=== PATIENT | male | born 1980 | race Caucasian/White ===

== ENCOUNTER 2021-07-01 20:58 | Emergency (ER) | payer SELFPAY ==
[~2021-07-01] VITALS: Ht 177.8 cm; Wt 89.9 kg
[2021-07-01 21:16] VITALS: BP 92/66
--- NOTE | 2021-07-01 21:32 | NUR ---
2119 TAKEN TO BED.
[2021-07-01] MEDS ORDERED: BACITRACIN OINT 500 UNITS/GM PKT TP ONE (22:25)
[2021-07-01] MEDS ORDERED: ACETAMINOPHEN EXTRA STRENGTH 500 MG TAB PO ONE (22:25)
--- NOTE | 2021-07-01 22:30 | NUR ---
Patient appears to be resting comfortably in bed. Vital Signs within normal limits. Respirations even and unlabored.
--- NOTE | 2021-07-01 23:14 | NUR ---
cleaned puncture site. applied ointment and new bandage. pt resting comfortably
[2021-07-01] MEDS ORDERED: BACI1PAC6 TP (23:15)
[2021-07-01] MEDS ORDERED: ACET-10509 PO (23:15)
[2021-07-01] MEDS ORDERED: CEPH-588 PO (23:16)
[2021-07-01] MEDS ORDERED: cephALEXin 500 MG CAP PO ONE (23:20)
--- NOTE | 2021-07-01 23:20 | NUR ---
41 Y/O MALE HAD A NAIL IN CHEST YESTERDAY TRYING TO PULL IT OUT OF MATERIAL. PT DID NOT COME TO WE UNTIL IT BEGAN TO HURT AND THERE WAS REDNESS AND SWELLING AROUND SITE. PT STATES PAIN 8/10. PT STATES PAIN RADIATES LATERALLY ACROSS CHEST. NAIL WENT ABOUT 1.5 INCHES DEEP. PT IS A&0X4 WITH EVENAND STEADY GAIT PMH: NONE ALLERGIES: NONE RX:NONE
[2021-07-02] VITALS: BP 123/61
--- NOTE | 2021-07-02 | NUR ---
Patient discharged with v/s stable. Written and verbal after care instructions given and explained. Patient alert, oriented and verbalized understanding of instructions. Ambulatory with steady gait. All questions addressed prior to discharge. ID band removed. Patient advised to follow up with PMD. Rx of ACETAMETAPHIN,BACITRACIN, KELEX given. Opportunity to ask questions provided and answered.
--- NOTE | 2021-07-02 00:28 | NUR ---
The patient's care was reviewed and supervised by Sruthi Alberto RN.
== END 2021-07-02 | disposition home or self-care (01) ==
LOC: MED 20:58
DX: S21.131A Puncture wound without foreign body of right front wall of thorax without penetration into thoracic cavity, initial encounter (principal); Z79.2 Long term (current) use of antibiotics; Z79.899 Other long term (current) drug therapy; W45.8XXA Other foreign body or object entering through skin, initial encounter; Y93.89 Activity, other specified; Y92.89 Other specified places as the place of occurrence of the external cause; Y99.0 Civilian activity done for income or pay
CPT/HCPCS: 71045; 90471; 90715; 99285; Q0092